=== PATIENT | female | born 1980 | race Caucasian/White ===

== ENCOUNTER 2019-03-25 22:01 | Emergency (ER) | payer BC ==
[~2019-03-25] VITALS: Ht 157.5 cm; Wt 66.8 kg
[2019-03-25] MEDS ORDERED: NORA-BE0.35 MG PO (22:10)
[2019-03-25] MEDS ORDERED: KEFLEX500 MG PO (23:19)
[2019-03-25 23:37] VITALS: BP 129/84
== END 2019-03-25 23:37 | disposition home or self-care (01) | DRG 603 ==
LOC: ED 22:01
DX: L08.89 Other specified local infections of the skin and subcutaneous tissue (principal); W45.8XXA Other foreign body or object entering through skin, initial encounter